=== PATIENT | male | born 1960 ===

== ENCOUNTER 2022-03-09 11:54 | Emergency (ER) | payer MEDICAID ==
[~2022-03-09] VITALS: Ht 175.3 cm; Wt 89.0 kg
[2022-03-09] MEDS ORDERED: DIPHENHYDRAMINE 50MG/ML VIAL IV ONE (13:00)
[2022-03-09] MEDS ORDERED: FAMOTIDINE 20MG/2ML VIAL IV ONE (13:00)
[2022-03-09] MEDS ORDERED: METHYLPREDNISOLONE SOD SUCC 125 MG/2 ML VIAL IV ONE (13:00)
[2022-03-09] MEDS ORDERED: DIPH25CA83 MT (17:04)
[2022-03-09 17:24] VITALS: BP 130/70
== END 2022-03-09 18:15 | disposition home or self-care (01) ==
LOC: ER 11:54
DX: T78.2XXA Anaphylactic shock, unspecified, initial encounter (principal); T63.441A Toxic effect of venom of bees, accidental (unintentional), initial encounter; Y92.9 Unspecified place or not applicable
CPT/HCPCS: 96374; 96375; 99284; J1200; J2930; J3490